=== PATIENT | male | born 1985 | race African-American/Black ===

== ENCOUNTER 2018-08-11 18:04 | Emergency (ER) | payer SELFPAY ==
[~2018-08-11] VITALS: Ht 195.6 cm; Wt 79.5 kg
[2018-08-11] MEDS ORDERED: KETOROLAC TROMETHAMINE 30 MG/ML VIAL IM ONE (20:45)
[2018-08-11 22:26] VITALS: BP 132/76
== END 2018-08-11 22:34 | disposition home or self-care (01) ==
LOC: EMS 18:06
DX: S90.32XA Contusion of left foot, initial encounter (principal); F12.90 Cannabis use, unspecified, uncomplicated; F17.210 Nicotine dependence, cigarettes, uncomplicated; W13.8XXA Fall from, out of or through other building or structure, initial encounter; Y93.39 Activity, other involving climbing, rappelling and jumping off; Y92.89 Other specified places as the place of occurrence of the external cause; Y99.8 Other external cause status
CPT/HCPCS: 73630; 96372; 99283; J1885